=== PATIENT | male | born 1965 | race Caucasian/White ===

== ENCOUNTER 2023-01-15 08:33 | Day surgery (SDC) | payer BC ==
[~2023-01-15] VITALS: Ht 175 cm; Wt 88.8 kg
[2023-01-15] MEDS ORDERED: fentaNYL INJ 100 MCG/2 ML AMP ONE ×2 (08:57→12:17)
[2023-01-15] MEDS ORDERED: LIDOCAINE 1% INJ 20 ML VIAL ONE (08:58)
[2023-01-15] MEDS ORDERED: NS IV 1000 ML 1,000 ML ONE (08:58)
[2023-01-15] MEDS ORDERED: MIDAZOLAM 2 MG/2 ML (VERSED) VIAL ONE (08:58)
[2023-01-15] MEDS ORDERED: HEParin (CATH LAB) 1,000 ML IV ONE (08:58)
--- NOTE | 2023-01-15 08:58 | ED Chest Pain ---
General Chief Complaint: Chest Pain Stated Complaint: CHEST PAINS Nursing Triage Note: CHEST PAIN STARTING YESTERDAY. Source: patient Exam Limitations: no limitations History of Present Illness Date Seen by Provider: January 15, 2023 Time Seen by Provider: 08:46 Initial Comments 57-year-old male presents to the emergency department today for chest pain. Symptoms started yesterday about midday and have been persistent though intermittent since that time. They do seem to be worse with exertion. It is described as a pressure sensation in his mid chest with radiation to the posterior bilateral arms. No nausea vomiting or diaphoresis. He is never had similar pains in the past. He rates his pain about a 5-6 out of 10 at present. No known cardiac history. He does have high blood pressure and high cholesterol. No fevers chills or cough. All other systems reviewed and negative except documented per HPI. Voice recognition software was used to help create this chart Allergies and Home Medications Allergies Coded Allergies: No Known Drug Allergies (Unverified , 01/15/23) Patient Home Medication List Home Medication List Reviewed: Yes Aspirin (Children's Aspirin) 81 Mg Tab.chew, 81 MG PO DAILY Prescribed by: PEPE OBANDO on 01/16/23 0937 Atorvastatin Calcium (Lipitor) 40 Mg Tablet, 40 MG PO HS Prescribed by: PEPE OBANDO on 01/16/23 0937 Lisinopril (Lisinopril) 5 Mg Tablet, 5 MG PO DAILY Prescribed by: PEPE OBANDO on 01/16/23 0937 Metoprolol Succinate (Metoprolol Succinate) 25 Mg Tab.er.24h, 25 MG PO DAILY Prescribed by: PEPE OBANDO on 01/16/23 0937 Ticagrelor (Brilinta) 90 Mg Tablet, 90 MG PO BID Prescribed by: PEPE OBANDO on 01/16/23 0937 Review of Systems Review of Systems Constitutional: see HPI Past Vsylnif-Oqexot-Jteskm Hx Patient Social History Tobacco Use?: Yes Tobacco type used: Cigarettes Substance use?: No Alcohol Use?: No Family Medical History Reviewed Nursing Family Hx CAD Under 55 Years Old, CAD Over 55 Years Old Physical Exam Vital Signs Vital Signs - First Documented 01/15/23 08:35 Temp 36.0 Pulse 80 Resp 16 B/P (MAP) 169/118 (135) Pulse Ox 96 O2 Delivery Room Air Capillary Refill : Less Than 3 Seconds Height, Weight, BMI Height: '" Weight: lbs. oz. kg; 29.00 BMI Method: General Appearance: No Apparent Distress, WD/WN HEENT: Normal ENT Inspection, Pharynx Normal Neck: Full Range of Motion, Normal Inspection, Non Tender, Supple Respiratory: Chest Non Tender, Lungs Clear, Normal Breath Sounds, No Accessory Muscle Use, No Respiratory Distress Cardiovascular: Regular Rate, Rhythm, No Murmur Gastrointestinal: Normal Bowel Sounds, No Organomegaly, No Pulsatile Mass, Non Tender, Soft Extremity: Normal Capillary Refill, Normal Inspection, Normal Range of Motion, Non Tender, No Calf Tenderness, No Pedal Edema Neurologic/Psychiatric: Alert, Oriented x3, Normal Mood/Affect Skin: Normal Color, Warm/Dry Critical Care Note Critical Care Total Time (minutes) 45 Progress/Results/Core Measures Results/Orders Lab Results Laboratory Tests Test 01/15/23 08:52 01/15/23 09:04 Range/Units White Blood Count 11.1 H 4.3-11.0 10^3/uL Red Blood Count 5.30 4.30-5.52 10^6/uL Hemoglobin 16.3 13.3-17.7 g/dL Hematocrit 46 40-54 % Mean Corpuscular Volume 87 80-99 fL Mean Corpuscular Hemoglobin 31 25-34 pg Mean Corpuscular Hemoglobin Concent 35 32-36 g/dL Red Cell Distribution Width 13.1 10.0-14.5 % Platelet Count 251 130-400 10^3/uL Mean Platelet Volume 8.8 L 9.0-12.2 fL Prothrombin Time 12.7 12.2-14.7 SEC INR Comment 0.9 0.8-1.4 Activated Partial Thromboplast Time 31 24-35 SEC Sodium Level 138 135-145 MMOL/L Potassium Level 4.0 3.6-5.0 MMOL/L Chloride Level 109 H 98-107 MMOL/L Carbon Dioxide Level 19 L 21-32 MMOL/L Anion Gap 10 5-14 MMOL/L Blood Urea Nitrogen 13 7-18 MG/DL Creatinine 0.84 0.60-1.30 MG/DL Estimat Glomerular Filtration Rate 103 BUN/Creatinine Ratio 15 Glucose Level 127 H 70-105 MG/DL Calcium Level 9.8 8.5-10.1 MG/DL Corrected Calcium 9.7 8.5-10.1 MG/DL Total Bilirubin 0.3 0.1-1.0 MG/DL Aspartate Amino Transf (AST/SGOT) 19 5-34 U/L Alanine Aminotransferase (ALT/SGPT) 18 0-55 U/L Alkaline Phosphatase 84 40-136 U/L Troponin I 0.141 H <0.028 NG/ML Total Protein 7.0 6.4-8.2 GM/DL Albumin 4.1 3.2-4.5 GM/DL Lab Scanned Report LAB Reports [id number] My Orders Orders - WILFRID TIERNEY DO Ekg Tracing (01/15/23 08:40) Aspirin Chewable Tablet (Baby Aspirin Ch (01/15/23 09:00) Heparin (Bolus Per Protocol) (Heparin (B (01/15/23 09:00) Comprehensive Metabolic Panel (01/15/23 08:52) Protime With Inr (01/15/23 08:52) Partial Thromboplastin Time (01/15/23 08:52) Monitor-Rhythm Ecg Trace Only (01/15/23 08:52) Lipid Panel (01/16/23 06:00) Ed Iv/Invasive Line Start (01/15/23 08:52) Cbc No Diff (01/15/23 08:52) Troponin I Low (01/15/23 08:52) Ticagrelor Tablet (Brilinta Tablet) (01/15/23 09:01) Vital Signs/I&O 01/15/23 08:35 Temp 36.0 Pulse 80 Resp 16 B/P (MAP) 169/118 (135) Pulse Ox 96 O2 Delivery Room Air Blood Pressure Mean: 135 Comment Sinus rhythm with a rate of 81 bpm. Normal intervals. Normal axis. ST elevations in V2 through V6 with some reciprocal depressions in lead III. Mild ST elevations in 1 and aVL. Positive for STEMI. Departure Communication (Admissions) 0850: Tried to call Dr Salazar, left message. Activated laborer pipelines. Heparin, ASA ordered. 0855: Patient taken emergently to the [facility]. He is hemodynamically stable. Impression Primary Impression: STEMI (ST elevation myocardial infarction) Qualified Codes: I21.3 - ST elevation (STEMI) myocardial infarction of unspecified site Disposition: ADMITTED INPATIENT Condition: Stable Admissions Decision to Admit Reason: Admit from ER (General) Departure-Patient Inst. Referrals: NO,LOCAL PHYSICIAN (PCP/Family) Primary Care Physician Scripts Aspirin (Children's Aspirin) 81 Mg Tab.chew 81 MG PO DAILY, #30 TAB 5 Refills Prov: PEPE OBANDO MATERIAL REPROCESSING ASSOCIATE 01/16/23 Lisinopril (Lisinopril) 5 Mg Tablet 5 MG PO DAILY, #30 TAB 5 Refills Prov: PEPE OBANDO MATERIAL REPROCESSING ASSOCIATE 01/16/23 Metoprolol Succinate (Metoprolol Succinate) 25 Mg Tab.er.24h 25 MG PO DAILY, #30 TAB 5 Refills Prov: PEPE OBANDO MATERIAL REPROCESSING ASSOCIATE 01/16/23 Atorvastatin Calcium (Lipitor) 40 Mg Tablet 40 MG PO HS, #30 TAB 5 Refills Prov: PEPE OBANDO MATERIAL REPROCESSING ASSOCIATE 01/16/23 Ticagrelor (Brilinta) 90 Mg Tablet 90 MG PO BID, #60 TAB 5 Refills Prov: PEPE OBANDOP 01/16/23 WILFRID TIERNEY DO January 15, 2023 08:58
[2023-01-15 08:59] LABS: HEMATOCRIT 46 % (40-54); HEMOGLOBIN 16.3 g/dL (13.3-17.7); MEAN CORPUSCULAR HEMOGLOBIN 31 pg (25-34); MEAN CORPUSCULAR HGB CONC 35 g/dL (32-36); MEAN CORPUSCULAR VOLUME 87 fL (80-99); MEAN PLATELET VOLUME 8.8 fL (9.0-12.2); PLATELET COUNT 251 10^3/uL (130-400); WHITE BLOOD COUNT 11.1 10^3/uL (4.3-11.0)
[2023-01-15] MEDS ORDERED: HEParin 1000 UNIT/ML (10ML VIAL) FOR BOLUS IV SCH (09:00)
[2023-01-15] MEDS ORDERED: ASPIRIN 81 MG CHEW (CHILDREN'S ASA) PO ONE (09:00)
[2023-01-15] MEDS ORDERED: TICAGRELOR 90 MG TABLET (BRILINTA) PO STA (09:01)
[2023-01-15 09:17] LABS: ALBUMIN 4.1 GM/DL (3.2-4.5); INR 0.9 (0.8-1.4); PROTHROMBIN TIME PATIENT 12.7 SEC (12.2-14.7)
[2023-01-15 09:19] LABS: CALCIUM 9.8 MG/DL (8.5-10.1)
[2023-01-15 09:22] LABS: BILIRUBIN,TOTAL 0.3 MG/DL (0.1-1.0)
[2023-01-15 09:23] LABS: CREATININE SERUM 0.84 MG/DL (0.60-1.30)
[2023-01-15] MEDS ORDERED: HEParin 1000 UNIT/ML (10ML VIAL) FOR BOLUS ONE (09:23)
[2023-01-15] MEDS ORDERED: NITRO DRIP 25000 MCG/D5W 0 ML IV ONE (09:23)
[2023-01-15] MEDS ORDERED: EPTIFIBATIDE DRIP 100 ML IV ONE (09:32)
[2023-01-15] MEDS ORDERED: EPTIFIBATIDE BOLUS 20 ML IV ONE (09:32)
--- NOTE | 2023-01-15 10:18 | Cardiac Cath Report ---
CARDIAC CATHETERIZATION DATE OF PROCEDURE: 01-15-23 INDICATION: Acute anterior STEMI HISTORY: The patient is a 57 year old male with acute STEMI, symptoms since the afternoon of 01/14/23 (waxing and waning chest discomfort that has not resolved) PROCEDURES PERFORMED: 1. Cor angio; 2. PCI to LAD; 3. LHC PROCEDURE DESCRIPTION: After informed consent and in the fasting state, left heart catheterization was performed through the R femoral artery utilizing a 6 Maori system by percutaneous approach. Standard Sun catheters (6F JL 4 guide for L cors and 6F JR 4 diagnostic for R cor and 6F pigtail for LHC), were utilized for the diagnostic portion of the procedure. HEMODYNAMICS: LVEDP 31 mmHg, no significant pressure gradient on pullback across the aortic valve LV Angiogram (VARGAS projection only): Wily-apical hypokinesis, LVEF approx 40- 45% CORONARY ANGIOGRAPHY: Left main coronary artery: Ok Left anterior descending coronary artery: 100% mid to 0% mid after PCI (Orsiris stent 2.5 x 15); diffuse, mild to mod plaque Left circumflex coronary artery: Non-dominant and with diffuse, mild to moderate plaque Right coronary artery: Dominant, diffuse mild plaque PERCUTANEOUS CORONARY INTERVENTION: Pre-PCI: 100% mid-vessel LAD with KYLE 0 antegrade flow Guide: 6F JL 4 Wire: Choice Floppy Balloon: 2 x 20 ([id number] time 50 minutes) Stent: Orsiris 2.5 x 15 (deployed at 16 con and prox 2/3 of the stented segment to 20 con) Post-PCI: 0% mid LAD and KYLE 3 antegrade flow IMPRESSION: 1. CAD primarily consisting of LAD 100% mid that was reduced to 0% mid after PCI (Orsiris stent 2.5 x 15); rest of the cors have mild to moderate plaque that is diffuse 2. LVEDP 31 mmHg 3. LVEF 40-45% RHONDA MUNGUIA MD FACP [facility] January 15, 2023 10:18
--- NOTE | 2023-01-15 10:24 | Cardiology History & Physical ---
HPI-Cardiology Cardiology H&P Date of Admission 01/15/23 Primary Care Physician Attending Physician: Basilia Salazar MD, MA [facility] Attending Physician No Local Physician Consulting Physician HPI Pt evaluated before, during, and after the PCI procedure for ac anterior wall STEMI 57 yo man with waxing and waning chest discomfort since early afternoon of : mid sternal, pressure-like, mild to moderately severe, radiating to both shoulders, associated with shortness of breath, never experienced before, somewhat worse this morning that caused him to come to the ER. Chronic, slowly progressive, exertional shortness of breath. No palp or syncope or leg swelling. Review of Systems-Cardiology Review of Systems Constitutional: No chills, No fever, No lightheadedness, No weight loss, No weight gain Eyes: No vision change Ears/Nose/Throat: No ear discharge, No nasal drainage, No recent hearing loss Respiratory: As described under HPI Cardiovascular: As described under HPI Gastrointestinal: No diarrhea, No nausea, No vomiting Genitourinary: No dysuria, No hematuria, No urine frequency changes Musculoskeletal: No back pain; joint pain (chronic) Skin: No rash on exposed areas, No ulcerations on exposed areas Psychiatric/Neurological: No seizure, No focal weakness, No syncope Hematologic: No bleeding abnormalities OOX-Haagkr-Mhqioh Hx Patient Social History Have you traveled recently?: No Alcohol Use?: No Tobacco type used: Cigarettes Past Medical History PMH As described under Assessment. Family Medical History Family Medical History: Fam h/o early CAD (brother and father had MIs in their 50s) Allergies and Home Medications Allergies Coded Allergies: No Known Drug Allergies (Unverified , 01/15/23) Patient Home Medication List Home Medication List Reviewed: Yes Physical Exam-Cardiology Physical Exam Vital Signs/I&O 01/15/23 01/15/23 08:35 09:10 Temp 36.0 Pulse 80 106 Resp 16 16 B/P (MAP) 169/118 (135) 187/126 Pulse Ox 96 96 O2 Delivery Room Air Room Air Capillary Refill : Less Than 3 Seconds Constitutional: AAO x 3, well-developed, well-nourished HEENT: EOMI, hearing is well preserved; No xanthelasmas are seen Neck: carotid pulses are 2 + bilaterally, with good upstrokes Respiratory: No accessory muscle use; chest expansion is symmetric, chest is bilaterally symmetric, other (fair air entry, prolonged exp, exp wheezes) Cardiovascular: regular rate-rhythm, S1 and S2, systolic murmur (soft BALAJI at card base) Gastrointestinal: No tender; soft; No guarding, No rebound; audible bowel sounds Extremities: No clubbing, No cyanosis, No significant edema Neurologic/Psychiatric: oriented x 3, other (moves all limbs equally) Skin: No rash on exposed areas, No ulcerations on exposed areas Data Review Labs Laboratory Tests 01/15/23 08:52: White Blood Count 11.1H, Red Blood Count 5.30, Hemoglobin 16.3, Hematocrit 46, Mean Corpuscular Volume 87, Mean Corpuscular Hemoglobin 31, Mean Corpuscular Hemoglobin Concent 35, Red Cell Distribution Width 13.1, Platelet Count 251, Mean Platelet Volume 8.8L, Prothrombin Time 12.7, INR Comment 0.9, Activated Partial Thromboplast Time 31, Sodium Level 138, Potassium Level 4.0, Chloride Level 109H, Carbon Dioxide Level 19L, Anion Gap 10, Blood Urea Nitrogen 13, Creatinine 0.84, Estimat Glomerular Filtration Rate 103, BUN/Creatinine Ratio 15, Glucose Level 127H, Calcium Level 9.8, Corrected Calcium 9.7, Total Bilirubin 0.3, Aspartate Amino Transf (AST/SGOT) 19, Alanine Aminotransferase (ALT/SGPT) 18, Alkaline Phosphatase 84, Troponin I 0.141H, Total Protein 7.0, Albumin 4.1 Laboratory Tests 01/15/23 08:52 A/P-Cardiology Assessment/Admission Diagnosis Acute ant wall STEMI - card cath on 01/15/23: 1. CAD primarily consisting of LAD 100% mid that was reduced to 0% mid after PCI (Orsiris stent 2.5 x 15); rest of the cors have mild to moderate plaque that is diffuse; 2. LVEDP 31 mmHg; 3. LVEF 40-45% Chronic smoker of cigarettes ?COPD Abnormal pulmonary shadows on chest fluoroscopy H/o hypertension, noncompliant with treatment Fam h/o early CAD Admission Status: Inpatient Order (span 2 midnights) Reason for Inpatient Admission: STEMI Discussion and Recomendations * DAPT * Advised to quit smoking immediately and completely * BB * Statin * Monitor labs * Dr. Morgan requested in consult to eval pulm issues, including pulm shadows seen on fluoroscopy. I called him and discussed the case BASILIA SALAZAR MD FACP [facility] January 15, 2023 10:24
--- NOTE | 2023-01-15 10:43 | Cardiac Procedure Note-CS/ASA ---
Pre-Procedure Note Pre-Op Procedure Note Date of Available H&P: January 15, 2023 Date H&P Reviewed: January 15, 2023 Time H&P Reviewed: 09:15 History & Physical: H&P Reviewed Moderate Sedation PreProcedure ASA Score 4 Airway Lungs Heart ASA score ASA 1: a normal healthy patient ASA 2: a patient with a mild systemic disease (mid diabetes, controlled hypertension, obesity ASA 3: a patient with a severe systemic disease that limits activity (angina, COPD, prior Myocardial infarction) ASA 4: a patient with an incapacitating disease that is a constant threat to life (CHF, renal failure) ASA 5: a moribund patient not expected to survive 24 hrs. (ruptured aneurysm) ASA 6: a declared brain- patient whose organs are being harvested. For emergent operations, add the letter E after the classification Mallampati Classification Grade 2 Sedation Plan Analgesia, Amnesia, Plan communicated to team members The patient is an appropriate candidate to undergo the planned procedure, sedation, and anesthesia. The patient immediately re-assessed prior to indication. RHONDA MUNGUIA MD FACP [facility] January 15, 2023 10:43
[2023-01-15] MEDS ORDERED: PATIENT MAY USE OWN MEDS, ALL PO SCH (10:45)
[2023-01-15] MEDS ORDERED: ACETAMINOPHEN 325 MG TABLET PO PRN ×2 (10:45→16:30)
[2023-01-15] MEDS ORDERED: TEMAZEPAM 7.5 MG CAP (RESTORIL) PO PRN (10:45)
[2023-01-15] MEDS ORDERED: lisINopril 5 MG (PRINIVIL) TABLET PO ONE (10:45)
[2023-01-15] MEDS ORDERED: meTOprolol 5 MG/5 ML (LOPRESSOR) VIAL ONE (11:31)
[2023-01-15] MEDS ORDERED: meTOprolol TARTRATE 25 MG (LOPRESSOR) TABLET ONE (11:57)
[2023-01-15] MEDS: NS IV 1000 ML 1,000 ML IV SCH (11:59)
[2023-01-15] MEDS ORDERED: ATROPINE INJECTION 1 MG/10 ML SYR (ABBOTT) ONE (12:17)
[2023-01-15] MEDS ORDERED: CALCIUM CARBONATE 500 MG (TUMS) TAB.CHEW PO PRN (14:45)
--- NOTE | 2023-01-15 16:25 | Consultation - Hospitalist ---
HPI History of Present Illness: HPI/Chief Complaint Isauro Chow is a 57 year old male with PMH HTN, tobacco abuse, who was admitted with chest pain. He has been having intermittent chest pain for several days. He reports improvement with tums. He reports chest heaviness that did not radiate. He denies nausea and vomiting. He denies diaphoresis. He did feel short of breath. 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 A friend recommended that he go to the ER. He was found to have an acute STEMI. He was taken to the laboratory chemist and had a stent placed in the mid-LAD. Upon my exam, he has arrived in the ICU after his cath. He is on bedrest. He is feeling well. He denies any chest pain or shortness of breath. He has no complaints. He is a current smoker. He reports that he is going to quit. Source: patient Exam Limitations: no limitations Date Seen 01/15/23 Attending Physician No,Local Physician PCP Admitting Physician: Attending Physician: Basilia Salazar MD [facility] Referring Physician Date of Admission Home Medications & Allergies Home Medications Reviewed patient Home Medication Reconciliation performed by pharmacy medication reconciliations avionics technician and/or nursing. Patients Allergies have been reviewed. Allergies Allergies Coded Allergies No Known Drug Allergies (Unverified01/15/23) Past Aipguzr-Vgqfho-Tiozis Hx Patient Social History Tobacco Use?: Yes Tobacco type used: Cigarettes Smoking Status: Current Everyday Smoker Smokeless Tobacco Frequency: Never a User Use of E-Cig and/or Vaping dev: No Substance use?: No Alcohol Use?: No Pt feels they are or have been: No Current Status Advance Directives: No Communicates: Verbally Primary Language: Tamazight Preferred Spoken Language: Tamazight Is interpretation needed?: No Implanted or Applied Medical D: None Past Medical History Coronary Artery Disease, Heart Attack, Hypertension Family Medical History Reviewed Nursing Family Hx CAD Under 55 Years Old, CAD Over 55 Years Old Review of Systems Constitutional: no symptoms reported Respiratory: short of breath Cardiovascular: chest pain Gastrointestinal: no symptoms reported Physical Exam Physical Exam Vital Signs Vital Signs - First Documented 01/15/23 01/15/23 08:35 10:30 Temp 36.0 Pulse 80 Resp 16 B/P (MAP) 169/118 (135) Pulse Ox 96 O2 Delivery Room Air O2 Flow Rate 2.00 Capillary Refill : Less Than 3 Seconds Height, Weight, BMI Height: '" Weight: lbs. oz. kg; 29.38 BMI Method: General Appearance: No Apparent Distress, WD/WN HEENT: PERRL/EOMI, Pharynx Normal Neck: Normal Inspection, Supple Respiratory: Chest Non Tender, Lungs Clear, Normal Breath Sounds, No Accessory Muscle Use, No Respiratory Distress Cardiovascular: Regular Rate, Rhythm, No Murmur Gastrointestinal: Normal Bowel Sounds, Non Tender, Soft Extremity: Normal Capillary Refill, Normal Inspection, Non Tender, No Pedal Edema Neurologic/Psychiatric: Alert, Oriented x3, Normal Mood/Affect Skin: Normal Color, Warm/Dry Results Results/Procedures Labs Laboratory Tests 01/15/23 08:52 Patient resulted labs reviewed. Assessment/Plan Assessment and Plan Assess & Plan/Chief Complaint STEMI CAD HTN Cardiology primary s/p left heart cath and mid-LAD stent 01/15 Started on DAPT, beta leanne, statin Tobacco abuse Declined nicotine patch Recommend cessation Abnormal finding of lung Abnormal lung shadows visualized during heart cath CXR ordered Diagnosis/Problems Diagnosis/Problems (1) STEMI (ST elevation myocardial infarction) Status: Acute Qualifiers: Involved coronary artery: unspecified coronary artery Qualified Codes: I21.3 - ST elevation (STEMI) myocardial infarction of unspecified site (2) CAD (coronary artery disease) Status: Acute (3) HTN (hypertension) Status: Acute (4) Tobacco abuse Status: Acute (5) Abnormal finding of lung Status: Acute JESSICA HENDRICKSON MD January 15, 2023 16:25
[2023-01-15] MEDS ORDERED: MELATONIN 3 MG TABLET PO PRN (16:30)
[2023-01-15] MEDS ORDERED: ONDANSETRON 4 MG/2 ML (SDV) Z0FRAN IV PRN (16:30)
[2023-01-15] MEDS ORDERED: ONDANSETRON 4 MG (ZOFRAN) ORAL DISSOLVE TAB PO PRN (16:30)
[2023-01-15] MEDS ORDERED: ANTACID SUSP 30 ML UDC (MYLANTA) PO PRN (16:30)
[2023-01-15] MEDS ORDERED: diphenhydrAMINE 25 MG TAB (BENADRYL) PO PRN (16:30)
[2023-01-15] MEDS ORDERED: polyethylene glycoL POWDER 17 GM (MIRALAX) PACK PO PRN (16:30)
[2023-01-15] MEDS ORDERED: MILK OF MAGNESIA 400 MG/5 ML 30 ML UDC PO PRN (16:30)
[2023-01-15] MEDS ORDERED: BISACODYL 10 MG SUPP (DULCOLAX) PR PRN (16:30)
[2023-01-15] MEDS ORDERED: diphenhydrAMINE 50 MG/ML INJ (BENADRYL) IVP PRN (16:30)
[2023-01-15] MEDS ORDERED: LACTULOSE SYRUP 10GM/15ML (ENULOSE) 30ML UDC PO PRN (16:30)
--- NOTE | 2023-01-15 18:50 | Diagnostic Imaging Report ---
INDICATION: Shortness of breath, abnormal imaging on prior fluoroscopy. COMPARISON: None available. TECHNIQUE: Frontal radiograph of the chest dated January 15, 2023. FINDINGS: The cardiac silhouette is within normal limits in size. No significant pulmonary vascular congestion. Multiple calcified mediastinal and hilar lymph nodes are present. Mild bilateral interstitial opacities are noted throughout the lungs, particularly centrally. No pleural effusion. No pneumothorax. No acute osseous abnormality. IMPRESSION: Evidence of chronic granulomatous disease with multiple calcified lymph nodes present. Mild central interstitial opacities, likely related to senescent changes of the lungs. Minimal bronchitis could be considered. Dictated by: Dictated on workstation # [id number]
[2023-01-15] MEDS ORDERED: TICAGRELOR 90 MG TABLET (BRILINTA) PO SCH (21:00)
[2023-01-15] MEDS ORDERED: SENNOSIDES 8.6 MG (SENOKOT) TAB PO SCH (21:00)
[2023-01-15] MEDS ORDERED: DOCUSATE SODIUM 100 MG (COLACE) CAP PO SCH (21:00)
[2023-01-15] MEDS ORDERED: RT-ALBUTEROL/IPRATROPIUM 3 ML (DUONEB) VIAL INH ONE (22:00)
[2023-01-15] MEDS ORDERED: NITROGLYCERIN 0.4 MG SL TABS BTL 25'S SL PRN (22:00)
[2023-01-15] MEDS ORDERED: ALPRAZolam 0.5 MG (XANAX) TAB PO ONE (22:30)
[2023-01-16 06:55] LABS: BASOPHILS % (AUTO) 0 % (0-10); EOSINOPHILS # (AUTO) 0.2 10^3/uL (0.0-0.3); EOSINOPHILS % (AUTO) 2 % (0-10); HEMATOCRIT 42 % (40-54); HEMOGLOBIN 14.6 g/dL (13.3-17.7); LYMPHOCYTES # (AUTO) 2.6 10^3/uL (1.0-4.0); LYMPHOCYTES % (AUTO) 24 % (12-44); MEAN CORPUSCULAR HEMOGLOBIN 31 pg (25-34); MEAN CORPUSCULAR HGB CONC 35 g/dL (32-36); MEAN CORPUSCULAR VOLUME 89 fL (80-99); MEAN PLATELET VOLUME 9.5 fL (9.0-12.2); MONOCYTES # (AUTO) 1.4 10^3/uL (0.0-1.0); MONOCYTES % (AUTO) 13 % (0-12); NEUTROPHILS # (AUTO) 6.7 10^3/uL (1.8-7.8); NEUTROPHILS % (AUTO) 61 % (42-75); PLATELET COUNT 234 10^3/uL (130-400)
[2023-01-16 07:10] LABS: ALBUMIN 3.5 GM/DL (3.2-4.5); BILIRUBIN,TOTAL 0.6 MG/DL (0.1-1.0); CALCIUM 8.7 MG/DL (8.5-10.1); CREATININE SERUM 0.77 MG/DL (0.60-1.30); TOTAL PROTEIN 5.9 GM/DL (6.4-8.2)
[2023-01-16] MEDS: NS IV 1000 ML 1,000 ML IV SCH (07:12)
[2023-01-16 08:08] VITALS: BP 169/118
[2023-01-16] MEDS ORDERED: RT-ALBUTEROL/IPRATROPIUM 3 ML (DUONEB) VIAL INH PRN (08:15)
[2023-01-16] MEDS ORDERED: ASPIRIN 81 MG CHEW (CHILDREN'S ASA) PO SCH (09:00)
[2023-01-16] MEDS ORDERED: lisINopril 5 MG (PRINIVIL) TABLET PO SCH (09:00)
[2023-01-16] MEDS ORDERED: RT-ALBUTEROL/IPRATROPIUM 3 ML (DUONEB) VIAL INH SCH (09:00)
--- NOTE | 2023-01-16 09:35 | Progress Note - Cardiology ---
Cardiology SOAP Progress Note Subjective: Sitting up in bed States he feels better this morning than yesterday He reports his feeling of SOB is better this morning No c/o CP, palpitations Objective: I&O/Vital Signs 01/15/23 01/15/23 01/16/23 01/16/23 22:00 22:14 00:00 04:00 Pulse 89 Resp 17 B/P (MAP) 101/67 (78) Pulse Ox 98 95 97 94 O2 Delivery Room Air Room Air Room Air Room Air 01/16/23 01/16/23 01/16/23 01/16/23 07:00 07:08 08:00 08:02 Temp 36.0 Pulse 66 60 56 Resp 9 19 B/P (MAP) 107/76 (86) 125/82 (96) Pulse Ox 93 97 O2 Delivery Room Air Room Air 01/16/23 01/16/23 08:08 09:00 Temp 36.0 Pulse 80 54 Resp 36 B/P (MAP) 124/67 (86) Pulse Ox 96 96 O2 Delivery Room Air FiO2 21 01/16/23 00:00 Intake Total 500 ml Output Total 600 ml Balance -100 ml Side: right Condition: DP/PT pulses palpable, extremity w/d/p Bruising: mild bruising Constitutional: AAO x 3, well-developed, well-nourished Respiratory: No accessory muscle use; chest expansion is symmetric, chest is bilaterally symmetric, other (fair air entry, prolonged exp, exp wheezes) Cardiovascular: regular rate-rhythm, S1 and S2, systolic murmur (soft BALAJI at card base) Gastrointestional: No tender; soft; No guarding, No rebound; audible bowel s ounds Extremities: No clubbing, No cyanosis, No significant edema Neurologic/Psychiatric: oriented x 3, other (moves all limbs equally) Skin: No rash on exposed areas, No ulcerations on exposed areas Results/Procedures: Labs Laboratory Tests 01/16/23 04:35: White Blood Count 11.0, Red Blood Count 4.73, Hemoglobin 14.6, Hematocrit 42, Mean Corpuscular Volume 89, Mean Corpuscular Hemoglobin 31, Mean Corpuscular Hemoglobin Concent 35, Red Cell Distribution Width 13.3, Platelet Count 234, Mean Platelet Volume 9.5, Immature Granulocyte % (Auto) 1, Neutrophils (%) (Auto) 61, Lymphocytes (%) (Auto) 24, Monocytes (%) (Auto) 13H, Eosinophils (%) (Auto) 2, Basophils (%) (Auto) 0, Neutrophils # (Auto) 6.7, Lymphocytes # (Auto) 2.6, Monocytes # (Auto) 1.4H, Eosinophils # (Auto) 0.2, Basophils # (Auto) 0.0, Immature Granulocyte # (Auto) 0.1, Sodium Level 139, Potassium Level 4.0, Chloride Level 111H, Carbon Dioxide Level 18L, Anion Gap 10, Blood Urea Nitrogen 9, Creatinine 0.77, Estimat Glomerular Filtration Rate 106, BUN/Creatinine Ratio 12, Glucose Level 103, Calcium Level 8.7, Corrected Calcium 9.1, Total Bilirubin 0.6, Aspartate Amino Transf (AST/SGOT) 57H, Alanine Aminotransferase (ALT/SGPT) 19, Alkaline Phosphatase 65, Total Protein 5.9L, Albumin 3.5, Triglycerides Level 176H, Cholesterol Level 161, LDL Cholesterol Direct 114, VLDL Cholesterol 35, HDL Cholesterol 30L, Thyroid Stimulating Hormone (TSH) 2.72 Procedures NAME: [facility] REC#: [id number] PT STATUS: REG [facility] : 1965 PHYSICIAN: RHONDA MUNGUIA MD, MA, FACP, FACC, [facility], [facility] ADMIT DATE: 01/15/23/ICU Signed Date of Exam:01/15/23 CHEST PA/LAT (2 VIEW) INDICATION: Shortness of breath, abnormal imaging on prior fluoroscopy. COMPARISON: None available. TECHNIQUE: Frontal radiograph of the chest dated January 15, 2023. FINDINGS: The cardiac silhouette is within normal limits in size. No significant pulmonary vascular congestion. Multiple calcified mediastinal and hilar lymph nodes are present. Mild bilateral interstitial opacities are noted throughout the lungs, particularly centrally. No pleural effusion. No pneumothorax. No acute osseous abnormality. IMPRESSION: Evidence of chronic granulomatous disease with multiple calcified lymph nodes present. Mild central interstitial opacities, likely related to senescent changes of the lungs. Minimal bronchitis could be considered. Dictated by: Dictated on workstation # [id number] Dict: 01/15/23 [id number] Trans: 01/15/23 1951 [facility] [id number] Interpreted by: RAY AMOS MD Electronically signed by: RAY AMOS MD 01/15/23 [id number] A/P: Assessment: Acute ant wall STEMI - card cath on 01/15/23: 1. CAD primarily consisting of LAD 100% mid that was reduced to 0% mid after PCI (Orsiris stent 2.5 x 15); rest of the cors have mild to moderate plaque that is diffuse; 2. LVEDP 31 mmHg; 3. LVEF 40-45% Chronic smoker of cigarettes - cessation advised ?COPD Abnormal pulmonary shadows on chest fluoroscopy - medical services consulted for further w/u (Dr. Morgan) H/o hypertension, noncompliant with treatment Fam h/o early CAD Plan: * Continue DAPT, BB, statin and INDIO * Advised to quit smoking immediately and completely * Discussed importance of compliance with medications and follow up to which he verbalizes understanding * Monitor labs * We have spoken with Dr. Morgan; he is going to make arrangements for establishment of primary care services and any other specialists he feels are needed PEPE OBANDO January 16, 2023 09:34
[2023-01-16] MEDS ORDERED: MTP25TSR PO (09:37)
[2023-01-16] MEDS ORDERED: ATOR40TA PO (09:37)
[2023-01-16] MEDS ORDERED: ASPI81TA64 PO (09:37)
[2023-01-16] MEDS ORDERED: TICA90TA PO (09:37)
[2023-01-16] MEDS ORDERED: LISI5TAB20 PO (09:37)
--- NOTE | 2023-01-16 09:40 | Discharge Inst-Cardiology ---
Discharge Inst-Cardiac Discharge Medications New Medications: Aspirin (Children's Aspirin) 81 Mg Tab.chew 81 MG PO DAILY, #30 TAB 5 Refills Atorvastatin Calcium (Lipitor) 40 Mg Tablet 40 MG PO HS, #30 TAB 5 Refills Lisinopril (Lisinopril) 5 Mg Tablet 5 MG PO DAILY, #30 TAB 5 Refills Metoprolol Succinate (Metoprolol Succinate) 25 Mg Tab.er.24h 25 MG PO DAILY, #30 TAB 5 Refills Ticagrelor (Brilinta) 90 Mg Tablet 90 MG PO BID, #60 TAB 5 Refills New, Converted or Re-Newed RX: Transmitted to Pharmacy Patient Instructions Patient Instructions: Please schedule follow up appointment to see Dr. Salazar/Yanique Zuleta APRN in 2 weeks Please be compliant with all medications and follow up appointments Please establish care with a primary care provider YANIQUE ROQUE January 16, 2023 09:40
--- NOTE | 2023-01-16 10:01 | Cardiology Discharge Summary ---
Diagnosis/Chief Complaint Date of Admission 01-15-23 Date of Discharge 01-16-23 Admission Diagnosis Acute ant wall STEMI - card cath on 01/15/23: 1. CAD primarily consisting of LAD 100% mid that was reduced to 0% mid after PCI (Orsiris stent 2.5 x 15); rest of the cors have mild to moderate plaque that is diffuse; 2. LVEDP 31 mmHg; 3. LVEF 40-45% Chronic smoker of cigarettes - cessation advised ?COPD Abnormal pulmonary shadows on chest fluoroscopy - medical services consulted for further w/u (Dr. Morgan) H/o hypertension, noncompliant with treatment Fam h/o early CAD Final/Discharge Diagnosis Acute ant wall STEMI - card cath on 01/15/23: 1. CAD primarily consisting of LAD 100% mid that was reduced to 0% mid after PCI (Orsiris stent 2.5 x 15); rest of the cors have mild to moderate plaque that is diffuse; 2. LVEDP 31 mmHg; 3. LVEF 40-45% Chronic smoker of cigarettes - cessation advised ?COPD Abnormal pulmonary shadows on chest fluoroscopy - medical services consulted for further w/u (Dr. Morgan) H/o hypertension, noncompliant with treatment Fam h/o early CAD Chief Complaint/HPI Chief Complaint/HPI Pt evaluated before, during, and after the PCI procedure for ac anterior wall STEMI 57 yo man with waxing and waning chest discomfort since early afternoon of 01/14/23: mid sternal, pressure-like, mild to moderately severe, radiating to both shoulders, associated with shortness of breath, never experienced before, somewhat worse this morning that caused him to come to the ER. Chronic, slowly p rogressive, exertional shortness of breath. No palp or syncope or leg swelling. Discharge Summary Procedures S/P cardiac cath with successful coronary intervention. Please refer to cardiac cath procedure note of 01-15-23 Discharge Physical Examination As per progress note of 01-16-23 Hospital Course Please refer to progress note of 01-16-23 Pending Labs Laboratory Tests 01/16/23 04:35: White Blood Count 11.0, Red Blood Count 4.73, Hemoglobin 14.6, Hematocrit 42, Mean Corpuscular Volume 89, Mean Corpuscular Hemoglobin 31, Mean Corpuscular Hemoglobin Concent 35, Red Cell Distribution Width 13.3, Platelet Count 234, Mean Platelet Volume 9.5, Immature Granulocyte % (Auto) 1, Neutrophils (%) (Auto) 61, Lymphocytes (%) (Auto) 24, Monocytes (%) (Auto) 13, Eosinophils (%) (Auto) 2, Basophils (%) (Auto) 0, Neutrophils # (Auto) 6.7, Lymphocytes # (Auto) 2.6, Monocytes # (Auto) 1.4, Eosinophils # (Auto) 0.2, Basophils # (Auto) 0.0, Immature Granulocyte # (Auto) 0.1, Sodium Level 139, Potassium Level 4.0, Chloride Level 111, Carbon Dioxide Level 18, Anion Gap 10, Blood Urea Nitrogen 9, Creatinine 0.77, Estimat Glomerular Filtration Rate 106, BUN/Creatinine Ratio 12, Glucose Level 103, Calcium Level 8.7, Corrected Calcium 9.1, Total Bilirubin 0.6, Aspartate Amino Transf (AST/SGOT) 57, Alanine Aminotransferase (ALT/SGPT) 19, Alkaline Phosphatase 65, Total Protein 5.9, Albumin 3.5, Triglycerides Level 176, Cholesterol Level 161, LDL Cholesterol Direct 114, VLDL Cholesterol 35, HDL Cholesterol 30, Thyroid Stimulating Hormone (TSH) 2.72 Radiology Reviewed NAME: TAY FLOWERS [facility] REC#: [id number] PT STATUS: REG [facility] [place] : 1965 PHYSICIAN: RHONDA MUNGUIA MD, MA, FACP, FACC, FSCAI, CCDS ADMIT DATE: 01/15/23/ICU Signed Date of Exam:01/15/23 CHEST PA/LAT (2 VIEW) INDICATION: Shortness of breath, abnormal imaging on prior fluoroscopy. COMPARISON: None available. TECHNIQUE: Frontal radiograph of the chest dated January 15, 2023. FINDINGS: The cardiac silhouette is within normal limits in size. No significant pulmonary vascular congestion. Multiple calcified mediastinal and hilar lymph nodes are present. Mild bilateral interstitial opacities are noted throughout the lungs, particularly centrally. No pleural effusion. No pneumothorax. No acute osseous abnormality. IMPRESSION: Evidence of chronic granulomatous disease with multiple calcified lymph nodes present. Mild central interstitial opacities, likely related to senescent changes of the lungs. Minimal bronchitis could be considered. Dictated by: Dictated on workstation # [id number] Dict: 01/15/23 [id number] Trans: [id number] [facility] [id number] Interpreted by: RAY AMOS MD Electronically signed by: RAY AMOS MD 01/15/231853 Discussion & Recommendations Discussion Continue DAPT, BB, statin and INDIO Advised to quit smoking immediately and completely Discussed importance of compliance with medications and follow up to which he verbalizes understanding Monitor labs We have spoken with Dr. Morgan; he is going to make arrangements for establishment of primary care services and any other specialists he feels are needed Home Medications Reviewed patient Home Medication Reconciliation performed by pharmacy medication reconciliations signal technician and/or nursing. Patients Allergies have been reviewed. Discharge Home Medications: Reviewed and agree with Discharge Medication list on patient's Discharge Instruction sheet PEPE OBANDO January 16, 2023 10:01
--- NOTE | 2023-01-16 10:15 | Progress Note - Cardiology ---
Cardiology SOAP Progress Note Subjective: No cp or palp or syncope No shortness of breath No n/v/d No focal weakness No groin or leg discomfort Insists on going home Objective: I&O/Vital Signs 01/15/23 01/16/23 01/16/23 01/16/23 22:14 00:00 04:00 07:00 Pulse 66 Resp 9 B/P (MAP) 107/76 (86) Pulse Ox 95 97 94 93 O2 Delivery Room Air Room Air Room Air Room Air 01/16/23 01/16/23 01/16/23 01/16/23 07:08 08:00 08:02 08:08 Temp 36.0 36.0 Pulse 60 56 80 Resp 19 B/P (MAP) 125/82 (96) Pulse Ox 97 96 O2 Delivery Room Air FiO2 21 01/16/23 01/16/23 09:00 09:51 Pulse 54 Resp 36 B/P (MAP) 124/67 (86) Pulse Ox 96 96 O2 Delivery Room Air Room Air 01/16/23 00:00 Intake Total 500 ml Output Total 600 ml Balance -100 ml Side: right Condition: DP/PT pulses palpable, extremity w/d/p Bruising: moderated bruising Constitutional: AAO x 3, well-developed, well-nourished Respiratory: No accessory muscle use; chest expansion is symmetric, chest is bilaterally symmetric, other (fair air entry, prolonged exp, exp wheezes) Cardiovascular: regular rate-rhythm, S1 and S2, systolic murmur (soft BALAJI at card base) Gastrointestional: No tender; soft; No guarding, No rebound; audible bowel sounds Extremities: No clubbing, No cyanosis, No significant edema Neurologic/Psychiatric: oriented x 3, other (moves all limbs equally) Skin: No rash on exposed areas, No ulcerations on exposed areas Results/Procedures: Labs Laboratory Tests 01/16/23 04:35: White Blood Count 11.0, Red Blood Count 4.73, Hemoglobin 14.6, Hematocrit 42, Mean Corpuscular Volume 89, Mean Corpuscular Hemoglobin 31, Mean Corpuscular Hemoglobin Concent 35, Red Cell Distribution Width 13.3, Platelet Count 234, Mean Platelet Volume 9.5, Immature Granulocyte % (Auto) 1, Neutrophils (%) (Auto) 61, Lymphocytes (%) (Auto) 24, Monocytes (%) (Auto) 13H, Eosinophils (%) (Auto) 2, Basophils (%) (Auto) 0, Neutrophils # (Auto) 6.7, Lymphocytes # (Auto) 2.6, Monocytes # (Auto) 1.4H, Eosinophils # (Auto) 0.2, Basophils # (Auto) 0.0, Immature Granulocyte # (Auto) 0.1, Sodium Level 139, Potassium Level 4.0, Chloride Level 111H, Carbon Dioxide Level 18L, Anion Gap 10, Blood Urea Nitrogen 9, Creatinine 0.77, Estimat Glomerular Filtration Rate 106, BUN/Creatinine Ratio 12, Glucose Level 103, Calcium Level 8.7, Corrected Calcium 9.1, Total Bilirubin 0.6, Aspartate Amino Transf (AST/SGOT) 57H, Alanine Aminotransferase (ALT/SGPT) 19, Alkaline Phosphatase 65, Total Protein 5.9L, Albumin 3.5, Triglycerides Level 176H, Cholesterol Level 161, LDL Cholesterol Direct 114, VLDL Cholesterol 35, HDL Cholesterol 30L, Thyroid Stimulating Hormone (TSH) 2.72 Laboratory Tests 01/15/23 08:52 01/16/23 04:35 A/P: Assessment: Acute ant wall STEMI - card cath on 01/15/23: 1. CAD primarily consisting of LAD 100% mid that was reduced to 0% mid after PCI (Orsiris stent 2.5 x 15); rest of the cors have mild to moderate plaque that is diffuse; 2. LVEDP 31 mmHg; 3. LVEF 40-45% Chronic smoker of cigarettes - cessation advised ?COPD Abnormal pulmonary shadows on chest fluoroscopy - medical services consulted for further w/u (Dr. Morgan) H/o hypertension, noncompliant with treatment Fam h/o early CAD Plan: * Continue DAPT, BB, statin and INDIO-inhib * Advised to quit smoking immediately and completely * Discussed importance of compliance with medications and follow up to which he verbalizes understanding * Monitor labs * I called and spoke with Dr. Morgan this morning; he said he has completed his pulmonary w/u; he is going to make arrangements for establishment of primary care services and any other specialists he feels are needed RHONDA MUNGUIA MD FACP [facility] CCDS January 16, 2023 10:15
--- NOTE | 2023-01-16 10:18 | Cardiology Discharge Summary ---
Diagnosis/Chief Complaint Date of Admission 01-15-23 Date of Discharge 01-16-23 Final/Discharge Diagnosis Acute ant wall STEMI - card cath on 01/15/23: 1. CAD primarily consisting of LAD 100% mid that was reduced to 0% mid after PCI (Orsiris stent 2.5 x 15); rest of the cors have mild to moderate plaque that is diffuse; 2. LVEDP 31 mmHg; 3. LVEF 40-45% Chronic smoker of cigarettes - cessation advised ?COPD Abnormal pulmonary shadows on chest fluoroscopy - medical services consulted for further w/u (Dr. Morgan) H/o hypertension, noncompliant with treatment Fam h/o early CAD Chief Complaint/HPI Chief Complaint/HPI Pt evaluated before, during, and after the PCI procedure for ac anterior wall STEMI 57 yo man with waxing and waning chest discomfort since early afternoon of 01/14/23: mid sternal, pressure-like, mild to moderately severe, radiating to both shoulders, associated with shortness of breath, never experienced before, somewhat worse this morning that caused him to come to the ER. Chronic, slowly progressive, exertional shortness of breath. No palp or syncope or leg swelling. Hosp course: He insisted on going home on 01-16-23 and refused to stay in the hosp any longer. His condition at d/c is documented in our progress note of today's date. We have discussed and advised compliance with follow up and with meds and with risk factor modification (including immediate complete cessation of smoking). Discharge Summary Hospital Course Pending Labs Laboratory Tests 01/16/23 04:35: White Blood Count 11.0, Red Blood Count 4.73, Hemoglobin 14.6, Hematocrit 42, Mean Corpuscular Volume 89, Mean Corpuscular Hemoglobin 31, Mean Corpuscular Hemoglobin Concent 35, Red Cell Distribution Width 13.3, Platelet Count 234, Mean Platelet Volume 9.5, Immature Granulocyte % (Auto) 1, Neutrophils (%) (Auto) 61, Lymphocytes (%) (Auto) 24, Monocytes (%) (Auto) 13, Eosinophils (%) (Auto) 2, Basophils (%) (Auto) 0, Neutrophils # (Auto) 6.7, Lymphocytes # (Auto) 2.6, Monocytes # (Auto) 1.4, Eosinophils # (Auto) 0.2, Basophils # (Auto) 0.0, Immature Granulocyte # (Auto) 0.1, Sodium Level 139, Potassium Level 4.0, Chloride Level 111, Carbon Dioxide Level 18, Anion Gap 10, Blood Urea Nitrogen 9, Creatinine 0.77, Estimat Glomerular Filtration Rate 106, BUN/Creatinine Ratio 12, Glucose Level 103, Calcium Level 8.7, Corrected Calcium 9.1, Total Bilirubin 0.6, Aspartate Amino Transf (AST/SGOT) 57, Alanine Aminotransferase (ALT/SGPT) 19, Alkaline Phosphatase 65, Total Protein 5.9, Albumin 3.5, Triglycerides Level 176, Cholesterol Level 161, LDL Cholesterol Direct 114, VLDL Cholesterol 35, HDL Cholesterol 30, Thyroid Stimulating Hormone (TSH) 2.72 Discussion & Recommendations Home Medications Reviewed patient Home Medication Reconciliation performed by pharmacy medication reconciliations cryptologic technician technical and/or nursing. Patients Allergies have been reviewed. Discharge Home Medications: Reviewed and agree with Discharge Medication list on patient's Discharge Instruction sheet RHONDA MUNGUIA MD FACP FAC CCDS January 16, 2023 10:18
--- NOTE | 2023-01-16 15:18 | Progress Note - Hospitalist ---
Subjective HPI/CC On Admission Date Seen by Provider: January 16, 2023 Time Seen by Provider: 10:15 Isauro Chow is a 57 year old male with PMH HTN, tobacco abuse, who was admitted with chest pain. He has been having intermittent chest pain for several days. He reports improvement with tums. He reports chest heaviness that did not radiate. He denies nausea and vomiting. He denies diaphoresis. He did feel short of breath. 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 A friend recommended that he go to the ER. He was found to have an acute STEMI. He was taken to the calibration laboratory technician and had a stent placed in the mid-LAD. Upon my exam, he has arrived in the ICU after his cath. He is on bedrest. He is feeling well. He denies any chest pain or shortness of breath. He has no complaints. He is a current smoker. He reports that he is going to quit. Subjective/Events-last exam He is feeling better. He denies pain. He denies shortness of breath. Objective Exam Vital Signs Vital Signs Date Time Temp Pulse Resp B/P (MAP) Pulse Ox O2 Delivery O2 Flow Rate FiO2 01/16/23 12:00 36.3 01/16/23 11:00 61 31 136/100 (112) 93 Room Air 01/16/23 08:08 21 01/15/23 17:00 2.00 Capillary Refill : Less Than 3 Seconds General Appearance: No Apparent Distress, WD/WN Respiratory: Lungs Clear, No Respiratory Distress Cardiovascular: Regular Rate, Rhythm, No Murmur Gastrointestinal: Normal Bowel Sounds, Soft Extremity: Normal Inspection, No Pedal Edema Neurologic/Psychiatric: Alert, Normal Mood/Affect Skin: Normal Color, Warm/Dry Results/Procedures Lab Laboratory Tests 01/16/23 04:35 Patient resulted labs reviewed. Imaging: Reviewed Imaging Films, Reviewed Imaging Report Assessment/Plan Assessment and Plan Assess & Plan/Chief Complaint STEMI CAD HTN Cardiology primary s/p left heart cath and mid-LAD stent 01/15 Continue DAPT, beta leanne, statin Follow up with Cardiology as scheduled Establish with a PCP at [facility] Tobacco abuse Recommend cessation Lung granulomas CXR read with chronic granulomatous disease Asymptomatic Follow up in the Heme/Onc clinic, may need further evaluation Diagnosis/Problems Diagnosis/Problems (1) STEMI (ST elevation myocardial infarction) Status: Acute Qualifiers: Involved coronary artery: unspecified coronary artery Qualified Codes: I21.3 - ST elevation (STEMI) myocardial infarction of unspecified site (2) CAD (coronary artery disease) Status: Acute (3) HTN (hypertension) Status: Acute (4) Tobacco abuse Status: Acute (5) Abnormal finding of lung Status: Acute (6) Granulomatous lung disease Status: Acute JESSICA HENDRICKSON MD January 16, 2023 15:18
== END 2023-01-16 12:00 | disposition home or self-care (01) ==
LOC: ER 08:37 → SDC 09:04 → ICU 10:30 → SDC 01-16 12:00
PROVIDERS: ATTEND Internal Medicine Cardiovascular Disease
DX: I25.10 Atherosclerotic heart disease of native coronary artery without angina pectoris (principal); I21.09 ST elevation (STEMI) myocardial infarction involving other coronary artery of anterior wall; F17.210 Nicotine dependence, cigarettes, uncomplicated; I10 Essential (primary) hypertension; R91.8 Other nonspecific abnormal finding of lung field; Z91.199 Patient's noncompliance with other medical treatment and regimen due to unspecified reason
CPT/HCPCS: 71046; 80053 ×2; 80061; 84443; 84484; 85025; 85027; 85610; 85730; 87081; 93005 ×2; 93041; 93458; 94640 ×2; 99284; C1725; C1769; C1874; C1887; C1894; C8929; C9606; 36415; 93306

== ENCOUNTER → 2023-02-12 | Outpatient (CLI) | payer BC ==
[~2023-02-12] MED LIST: ASPI81TA64 PO; ATOR40TA PO; HOLD METFORMIN - RECEIVED CONTRAST 20 ML VIAL IV SCH; IOHEXOL 350 MG/ML 100 ML (OMNIPAQUE 350) VIAL IV ONE; LISI5TAB20 PO; MTP25TSR PO; NS 100 ML (IVPB) BAG IV ONE; TICA90TA PO
--- NOTE | 2023-02-12 09:00 | Diagnostic Imaging Report ---
EXAMINATION: CT chest and abdomen with intravenous contrast. TECHNIQUE: Multiple contiguous axial images were obtained through the chest and abdomen after the uneventful administration of intravenous contrast. All CT scans use one or more of the following dose optimizing techniques: automated exposure control, MA and/or KvP adjustment based on patient size and exam type or iterative reconstruction. HISTORY: Lung nodule. COMPARISON: None available. FINDINGS: There is no edema or pneumonia. No pleural effusion. No pneumothorax. No suspicious nodules. There are scattered calcified granulomas. Lungs are moderately emphysematous. There is no axillary or supraclavicular lymphadenopathy. There is no mediastinal lymphadenopathy. There are calcified mediastinal lymph nodes from prior granulomatous infection. Heart size is normal. There are mild coronary artery calcifications. No pericardial effusion. Aorta is normal in caliber. The liver is normal without focal lesion. There is no biliary ductal dilation. Gallbladder is normal. Pancreas is normal. Spleen is normal. Adrenal glands are normal. The kidneys are normal. There is no hydronephrosis. Visualized bowel is normal in caliber without obstruction or inflammation. No free fluid or air. No abdominal lymphadenopathy. Aorta is normal in caliber without aneurysm. There are no suspicious osseus lesions. There is a chronic appearing mild T3 compression fracture. IMPRESSION: 1. No acute abnormality in the chest or abdomen. Dictated by: Dictated on workstation # [id number]
== END ==
LOC: RAD 07:40
PROVIDERS: ATTEND Internal Medicine Hematology & Oncology
DX: R91.8 Other nonspecific abnormal finding of lung field (principal)
CPT/HCPCS: 71260; 74160

== ENCOUNTER 2023-02-17 09:36 | Outpatient (RCR) | payer BC ==
[~2023-02-17 09:36] MED LIST changes: -HOLD METFORMIN - RECEIVED CONTRAST 20 ML VIAL IV SCH; -IOHEXOL 350 MG/ML 100 ML (OMNIPAQUE 350) VIAL IV ONE; -NS 100 ML (IVPB) BAG IV ONE
== END 2023-02-21 | disposition home or self-care (01) ==
LOC: ONC 09:36
PROVIDERS: ATTEND Internal Medicine Hematology & Oncology
DX: R91.8 Other nonspecific abnormal finding of lung field (principal); I25.2 Old myocardial infarction; F17.200 Nicotine dependence, unspecified, uncomplicated; Z95.5 Presence of coronary angioplasty implant and graft